=== PATIENT | female | born 1990 | race Caucasian/White ===

== ENCOUNTER 2016-06-12 01:59 | Emergency (ER) | payer BC, MEDICAID ==
[~2016-06-12] VITALS: Ht 157.5 cm; Wt 61.4 kg
[2016-06-12 02:42] LABS: ANION GAP 6 mmol/L (8-16); CALCIUM, TOTAL 8.9 mg/dL (8.8-10.5); CARBON DIOXIDE 30 mmol/L (22-29); CHLORIDE 102 mmol/L (98-107); GLOMERULAR FILTR. RATE CALC > 60 mL/min (>60); POTASSIUM 3.8 mmol/L (3.5-5.1); SODIUM SERUM 138 mmol/L (136-145); UREA NITROGEN, BLOOD 10 mg/dL (7-18)
[2016-06-12 02:48] LABS: ALANINE AMINOTRANSFERASE 15 U/L (12-78); ALBUMIN 3.8 g/dL (3.4-5.0); ASPARTATE AMINOTRANSFERASE 14 U/L (15-37); BILIRUBIN,TOTAL 0.2 mg/dL (0.1-1.0); TOTAL PROTEIN, SERUM 7.5 g/dL (6.4-8.2)
[2016-06-12 02:53] LABS: BASOPHILS % (AUTO) 0.4 % (0.0-2.0); EOSINOPHILS % (AUTO) 3.4 % (1.0-6.0); HEMATOCRIT 40.4 % (36-46); HEMOGLOBIN 13.1 g/dL (12.0-16.0); LYMPHOCYTES # (AUTO) 3.2 K/uL (1.0-4.8); LYMPHOCYTES % (AUTO) 34.1 % (22.0-44.0); MEAN CORPUSCULAR HEMOGLOBIN 30.7 pg (26.0-34.0); MEAN CORPUSCULAR HGB CONC 32.5 G/dL (31.0-37.0); MEAN CORPUSCULAR VOLUME 94 fL (80-100); MONOCYTES # (AUTO) 0.6 K/uL (0.1-1.0); MONOCYTES % (AUTO) 6.4 % (2.0-9.0); NEUTROPHILS # (AUTO) 5.3 K/uL (1.8-7.7); NEUTROPHILS % (AUTO) 55.7 % (40.0-70.0); PLATELET COUNT (AUTO) 174 K/uL (150-450); RED BLOOD CELL COUNT(AUTO) 4.28 MIL/uL (4.00-5.20); RED CELL DISTRIBUTION WIDTH 13.5 % (11.5-14.5); WHITE BLOOD COUNT (AUTO) 9.5 K/uL (4.5-11.0)
[2016-06-12 03:41] VITALS: BP 124/63
== END 2016-06-12 03:41 | disposition home or self-care (01) ==
LOC: EMS 01:59
DX: R07.89 Other chest pain (principal); F41.9 Anxiety disorder, unspecified
CPT/HCPCS: 93005; 99285